=== PATIENT | female | born 1995 | race Caucasian/White ===

== ENCOUNTER 2017-12-24 18:17 | Emergency (ER) | payer SELFPAY ==
[2017-12-24] MEDS ORDERED: Ketorolac INJ* 30 MG/ML 1 ML VIAL IM ONE (21:13)
[2017-12-24] MEDS ORDERED: Dexamethasone IV* 4 MG/ML 1 ML (4 MG) IM ONE (21:14)
[2017-12-24] MEDS ORDERED: diPHENhydraMINE PO* 25 MG PO ONE (21:14)
[2017-12-24] MEDS ORDERED: Prochlorperazine TAB* 5 MG PO ONE (21:14)
[2017-12-24] MEDS ORDERED: Dexamethasone TAB* 4 MG PO ONE (21:57)
[2017-12-24] MEDS ORDERED: Ibuprofen TAB* 400 MG PO ONE (21:57)
[2017-12-24 22:09] LABS: Urine Appearance Cloudy; Urine Blood Negative (Negative); Urine Color Yellow; Urine Ketones Trace (Negative); Urine Protein Negative (Negative); Urine Specific Gravity 1.025 (1.010-1.030); Urine Urobilinogen Negative (Negative)
--- NOTE | 2017-12-24 22:47 | ED ---
Alex Jorgensen Nikita, scribed for Grover Jarrett MD on 12/24/17 at 2103 . Headache - HPI Summary HPI Summary: This patient is a 22 year old F presenting to ED with a chief complaint of ZACARIAS since [id number]. The CC is described as a frontal ZACARIAS and worsened since onset, but has recently improved. The patient rates the pain 6/10 in severity. Symptoms aggravated by certain smells, driving, and movement. Symptoms alleviated by nothing. Patient reports decreased appetite secondary to pain, nausea, ear pain bilaterally, unexplained vision changes/blurred vision, and tremors. Patient denies numbness and tingling in arms and legs, vomiting, and fever. PMHx of MS (dx 2013, has not followed up due to cost and insurance). - History Of Current Complaint Chief Complaint: EDHeadache Stated Complaint: HEAD PAIN/NAUSEA Hx Obtained From: Patient Onset/Duration: Sudden Onset, Started hours ago, Resolved, Worse Since Initially Headache Was: Moderate Currently Pain Is: Current Pain Scale(0-10)= - 6, Moderate Timing: Constant Location of Headache: Frontal Aggravating Factor: Other - certain smells, driving, and movement Allevating Factors: Nothing Associated Signs And Symptoms: Other (Noted In Comments) - Patient reports decreased appetite secondary to pain, nausea, ear pain bilaterally, unexplained vision changes, and tremors. Patient denies numbness and tingling in arms and legs, vomiting, and fever. - Allergies/Home Medications Allergies/Adverse Reactions: Allergies Allergy/AdvReac Type Severity Reaction Status Date / Time No Known Allergies Allergy Verified 08/05/16 14:24 PMH/Surg Hx/FS Hx/Imm Hx Endocrine/Hematology History: Denies: Hx Diabetes Cardiovascular History: Denies: Hx Hypertension, Hx Pacemaker/ICD Sensory History: Denies: Hx Hearing Aid Neurological History: Reports: Other Neuro Impairments/Disorders - MS Psychiatric History: Denies: Hx Panic Disorder - Surgical History [facility], [facility] Infectious Disease History: Yes Infectious Disease History: Denies: Traveled Outside the [place] in Last 30 Days - Family History Known Family History: Negative: Cardiac Disease, Hypertension, Diabetes - Social History Alcohol Use: Occasionally Substance Use Type: Reports: None Smoking Status (MU): Never Smoked Tobacco Review of Systems Negative: Fever Positive: Blurred Vision - unexplained vision changes, Other - unexplained vision changes/blurred vision Positive: Ear Ache - bilaterally secondary to ZACARIAS Positive: Nausea, Other - decreased appetite secondary to pain. Negative: Vomiting Neurological: Other - tremors; denies tingling in arms and legs Positive: Headache - frontal. Negative: Numbness All Other Systems Reviewed And Are Negative: Yes Physical Exam - Summary Physical Exam Summary: Appearance: Well-appearing, Well-nourished Skin: Warm Eyes: Normal ENT: Normal Neck: Supple, nontender Respiratory: Clear to auscultation Cardiovascular: Normal S1, S2. No murmurs. Normal distal pulses in tibial and radial bilaterally. Abdomen: Soft, nontender Musculoskeletal: Normal, Strength/ROM Intact Neurological: Normal, A&Ox3, cranial nerves II-XII intact, normal strength sensation in upper and lower extremities bilaterally Psychiatric: Normal General: No acute distress Triage Information Reviewed: Yes Vital Signs On Initial Exam: Initial Vitals Temp Pulse Resp BP Pulse Ox 97.5 F 112 19 138/82 99 12/24/17 18:19 12/24/17 18:19 12/24/17 18:19 12/24/17 18:19 12/24/17 18:19 Vital Signs Reviewed: Yes Diagnostics - Vital Signs Vital Signs Temp Pulse Resp BP Pulse Ox 12/24/17 18:19 97.5 F 112 19 138/82 99 - Laboratory Lab Results: Lab Results 12/24/17 Range/Units 21:50 Urine Color Yellow Urine Appearance Cloudy Urine pH 5.0 (5-9) Ur Specific [place] 1.025 (1.010-1.030) Urine Protein Negative (Negative) Urine Ketones Trace A (Negative) Urine Blood Negative (Negative) Urine Nitrate Negative (Negative) Urine Bilirubin Negative (Negative) Urine Urobilinogen Negative (Negative) Ur Leukocyte Esterase Trace A (Negative) Urine WBC (Auto) Trace(0-5/hpf) (Absent) Urine RBC (Auto) Trace(0-2/hpf) (Absent) Ur Squamous Epith Cells Present A (Absent) Urine Bacteria Absent (Absent) Urine Glucose Negative (Negative) Lab Statement: Any lab studies that have been ordered have been reviewed, and results considered in the medical decision making process. Headache Course/Dx - Course Assessment/Plan: headache completely resolved after ED course, refused medications, neurologically intact. I informed pt that she should f/up with her neurologist promptly and to return for any wrosening or concerning symptoms. agrees to and udbrian chu instructions. - Diagnoses Provider Diagnoses: Headache Discharge - Sign-Out/Discharge Documenting (check all that apply): Discharge - Discharge Plan Condition: Improved Disposition: HOME Prescriptions: Ondansetron ODT TAB* [Zofran 4 MG Odt TAB*] 4 mg PO Q6H PRN #12 tab.odt PRN Reason: Nausea Patient Education Materials: Acute Headache (ED) Referrals: [facility], [Primary Care Provider] - Stephy Woodard MD [Medical Doctor] - Gilberto Feng MD [Medical Doctor] - Additional Instructions: PLEASE TAKE MEDICATIONS DIRECTED PLEASE MAKE AN APPOINTMENT FIRST THING IN THE MORNING TO BE SEEN BY A NEUROLOGIST WITHIN 1-2 WEEKS PLEASE RETURN IMMEDIATELY TO THE ER IF YOU HAVE ANY WORSENING OR CONCERNING SYMPTOMS PLEASE MAKE AN APPOINTMENT TO BE SEEN BY YOUR PRIMARY CARE DOCTOR WITHIN 1 WEEK - Billing Disposition and Condition Condition: IMPROVED Disposition: HOME The documentation as recorded by the Alex landeros Nikita accurately reflects the service I personally performed and the decisions made by me, Grover Jarrett MD.
[2017-12-24 23:32] VITALS: BP 126/77
== END 2017-12-24 23:34 | disposition home or self-care (01) ==
LOC: ED 18:17
DX: R51 Headache (principal); Z79.899 Other long term (current) drug therapy
CPT/HCPCS: 81003; 81015; 87086; 96372; 99283; A9270-GY; J1100; J1885; J8540